=== PATIENT | male | born 1965 | race American Indian/Alaskan Native ===

== ENCOUNTER 2019-07-01 18:45 | Inpatient (IN) | payer MEDICAID ==
[2019-07-01] MEDS ORDERED: ATIVAN IV ONE (19:15)
[2019-07-01] MEDS ORDERED: NACL 0.9% 500 ML 500 ML IV ONE (19:34)
[2019-07-01] MEDS ORDERED: KEPPRA 1,000 MG/NS 0.75% 100ML 1,000 MG/100 ML BAG IV ONE (19:34)
[2019-07-01] MEDS ORDERED: ATIVAN IV PRN (19:35)
--- NOTE | 2019-07-01 19:37 | Emergency Department Report ---
ED General Adult HPI - General Chief complaint: Seizure Stated complaint: SEIZURE/UNRESPONSIVE Time Seen by Provider: 07/01/19 19:26 Source: EMS (verbal report received from EMS.ems notes not available at time of chart dictation), RN notes reviewed, old records reviewed Mode of arrival: Stretcher Limitations: Altered Mental Status, Physical Limitation - History of Present Illness Initial comments: This is a 54-year-old gentleman. The patient is not known to this provider previously. The patient does not have any friends or family members present at the bedside. History entirely obtained from EMS. Apparently, the patient may have had a seizure today. He is reported to be a chronic alcoholic. EMS reports that the patient may have fallen, but they are not sure. The patient reportedly had a seizure in the ER prior to my evaluation, and was given either Ativan or Versed; please see nursing medical records for details of medication administration. In the ER, the patient is found to be delirious, and tachycardic. Patient is afebrile, and his score is initially 21 on ciwa protocol The patient will not answer questions about whether or not he is having physical pain. He is not able to describe exacerbating or relieving factors, or q ualitative nature of his symptoms. He is noted to be moving 4 extremities spontaneously. His last known well time is not explicitly noted at this time. -: unknown Radiation: other Severity scale (0 -10): 0 Quality: other Consistency: other Improves with: other Worsens with: other Associated Symptoms: other - Related Data Allergies Allergy/AdvReac Type Severity Reaction Status Date / Time No Known Allergies Allergy Unverified 10/10/16 22:00 ED Review of Systems ROS: Stated complaint: SEIZURE/UNRESPONSIVE Other details as noted in HPI Comment: Unobtainable due to pts medical conditions ED Past Medical Hx - Past Medical History Previous Medical History?: Yes Hx Arthritis: Yes Additional medical history: etoh abuse - Surgical History Past Surgical History?: Yes Additional Surgical History: left hip dislocation - Social History Smoking Status: Unknown if ever smoked ED Physical Exam - General Limitations: Altered Mental Status, Other General appearance: other (patient postictal, and appears to be delirious) - Head Head exam: Present: atraumatic, normocephalic - Eye Eye exam: Present: normal appearance, EOMI - ENT ENT exam: Present: mucous membranes dry, normal external ear exam - Neck Neck exam: Present: normal inspection, full ROM. Absent: tenderness, meningismus - Respiratory Respiratory exam: Present: normal lung sounds bilaterally. Absent: respiratory distress, wheezes, rales, rhonchi, stridor, decreased breath sounds - Cardiovascular Cardiovascular Exam: Present: normal rhythm, tachycardia, normal heart sounds. Absent: systolic murmur, diastolic murmur, rubs, gallop - GI/Abdominal GI/Abdominal exam: Present: soft. Absent: distended, tenderness, guarding, rebound, rigid, pulsatile mass - Rectal Rectal exam: Present: normal inspection - exam: Present: normal inspection External exam: Present: normal external exam - Extremities Exam Extremities exam: Present: normal inspection, other (2+ pulses noted in the bilateral upper, lower extremities. Compartments soft. No long bony tenderness. The pelvis is stable.). Absent: tenderness, pedal edema, joint swelling, calf tenderness - Back Exam Back exam: Present: normal inspection, full ROM. Absent: tenderness, CVA tenderness (R), CVA tenderness (L), paraspinal tenderness, vertebral tenderness - Neurological Exam Neurological exam: Present: altered, other (there is no facial droop. The patient is moving 4 extremities spontaneously. The patient is delirious. Detailed neurologic examination not possible secondary to altered mental status.) - Psychiatric Psychiatric exam: Present: agitated - Skin Skin exam: Present: warm, dry, intact, normal color. Absent: rash ED Course Vital Signs 07/01/19 07/01/19 07/01/19 19:33 19:35 19:46 Temperature 97.9 F Pulse Rate 112 H 122 H Pulse Rate [ Radial] Respiratory 19 20 14 Rate Blood Pressure Blood Pressure 130/89 [Left] O2 Sat by Pulse 100 98 Oximetry 07/01/19 07/01/19 07/01/19 20:00 20:15 20:30 Temperature Pulse Rate 113 H 111 H 117 H Pulse Rate [ Radial] Respiratory 15 19 15 Rate Blood Pressure 138/96 145/94 145/94 Blood Pressure [Left] O2 Sat by Pulse 99 100 100 Oximetry 07/01/19 07/01/19 07/01/19 21:18 21:30 21:46 Temperature Pulse Rate 96 H 102 H Pulse Rate [ Radial] Respiratory 15 22 Rate Blood Pressure 145/94 118/91 118/91 Blood Pressure [Left] O2 Sat by Pulse 99 99 98 Oximetry 07/01/19 07/01/19 07/01/19 22:00 22:16 22:30 Temperature Pulse Rate 100 H 105 H 102 H Pulse Rate [ Radial] Respiratory 16 18 17 Rate Blood Pressure 127/99 127/99 142/89 Blood Pressure [Left] O2 Sat by Pulse 99 98 98 Oximetry 07/01/19 07/01/19 07/01/19 22:46 23:00 23:06 Temperature Pulse Rate 106 H Pulse Rate [ 110 H Radial] Respiratory 24 Rate Blood Pressure 142/89 142/89 Blood Pressure [Left] O2 Sat by Pulse 99 99 Oximetry 07/01/19 07/01/19 07/01/19 23:16 23:30 23:46 Temperature Pulse Rate Pulse Rate [ Radial] Respiratory Rate Blood Pressure 149/95 149/95 149/95 Blood Pressure [Left] O2 Sat by Pulse 99 100 100 Oximetry 07/02/19 07/02/19 07/02/19 00:00 00:08 00:16 Temperature Pulse Rate 88 100 H 95 H Pulse Rate [ Radial] Respiratory 19 19 18 Rate Blood Pressure 123/82 164/101 164/101 Blood Pressure [Left] O2 Sat by Pulse 100 100 100 Oximetry 07/02/19 00:30 Temperature Pulse Rate 101 H Pulse Rate [ Radial] Respiratory 20 Rate Blood Pressure 139/94 Blood Pressure [Left] O2 Sat by Pulse 98 Oximetry - Reevaluation(s) Reevaluation #1: 07/01/19 20:50 Differential diagnosis, including a not limited to: Intracranial injury, cervical spine injury, breakthrough alcohol withdrawal seizure, dehydration, electrolyte derangement, hypoglycemia Assessment and plan: 54-year-old gentleman with probable alcohol withdrawal seizure. He is afebrile with reassuring vital signs, and is protecting his airway at this time. He is moving 4 extremities spontaneously without difficulty. Screening laboratory studies reviewed and appreciated. Initial anion gap likely secondary to dehydration, and probable recent convulsive event. He will be given IV fluids, Ativan as needed, CT scan of the brain, cervical spine will be obtained, x-ray of the chest will be obtained, urinalysis will be obtained, and patient will be admitted to the medical service for presumed alcohol withdrawal seizure. The patient is not homicidal or suicidal, and he does not meet 1013 criteria at this time. Reevaluation #2: 07/01/19 20:52 Elevated ammonia level also appreciated, rectal lactulose is ordered, there may be a component of hepatic encephalopathy. Reevaluation #3: 07/02/19 00:51 CT scan of the brain and cervical spine negative for acute disease. X-ray of the chest negative for acute disease. Analysis reviewed and appreciated. Question fungal infection, nystatin ordered. Hospital physician, Dr. Flores to admit patient to the medical service. No additional seizures noted so far. 07/02/19 00:52 Repeat laboratory studies show improvement in initial anion gap. ED Medical Decision Making - Lab Data Result diagrams: 07/01/19 19:56 07/01/19 21:15 Vital Signs 07/01/19 07/01/19 07/01/19 19:33 19:35 19:46 Temperature 97.9 F Pulse Rate 112 H 122 H Respiratory 19 20 14 Rate Blood Pressure Blood Pressure 130/89 [Left] O2 Sat by Pulse 100 98 Oximetry 07/01/19 20:00 Temperature Pulse Rate 113 H Respiratory 15 Rate Blood Pressure 138/96 Blood Pressure [Left] O2 Sat by Pulse 99 Oximetry Lab Results 07/01/19 07/01/19 07/01/19 Range/Units 19:56 19:56 19:56 WBC 8.3 (4.5-11.0) K/mm3 RBC 4.56 (3.65-5.03) M/mm3 Hgb 14.5 (11.8-15.2) gm/dl Hct 43.0 (35.5-45.6) % MCV 94 (84-94) fl MCH 32 (28-32) pg MCHC 34 (32-34) % RDW 14.6 (13.2-15.2) % Plt Count 135 L (140-440) K/mm3 Lymph % (Auto) 9.3 L (13.4-35.0) % [place] % (Auto) 8.3 H (0.0-7.3) % Eos % (Auto) 0.0 (0.0-4.3) % Baso % (Auto) 0.4 (0.0-1.8) % Lymph # 0.8 L (1.2-5.4) K/mm3 [place] # 0.7 (0.0-0.8) K/mm3 Eos # 0.0 (0.0-0.4) K/mm3 Baso # 0.0 (0.0-0.1) K/mm3 Seg Neutrophils % 82.0 H (40.0-70.0) % Seg Neutrophils # 6.8 (1.8-7.7) K/mm3 Sodium 144 (137-145) mmol/L Potassium 4.0 (3.6-5.0) mmol/L Chloride 101.3 (98-107) mmol/L Carbon Dioxide 16 L (22-30) mmol/L Anion Gap 31 mmol/L BUN 8 L (9-20) mg/dL Creatinine 0.8 (0.8-1.5) mg/dL Estimated GFR > 60 ml/min BUN/Creatinine Ratio 10 % Glucose 163 H (75-100) mg/dL Calcium 9.5 (8.4-10.2) mg/dL Magnesium 1.90 (1.7-2.3) mg/dL Total Bilirubin 0.70 (0.1-1.2) mg/dL AST 54 H (5-40) units/L ALT 26 (7-56) units/L Alkaline Phosphatase 117 (35-129) units/L Ammonia 68.0 H (25-60) umol/L Total Creatine Kinase 536 H (55-170) units/L Total Protein 8.7 H (6.3-8.2) g/dL Albumin 4.4 (3.9-5) g/dL Albumin/Globulin Ratio 1.0 % Salicylates (2.8-20.0) mg/dL Acetaminophen (10.0-30.0) ug/mL Plasma/Serum Alcohol (0-0.07) % 07/01/19 07/01/19 07/01/19 Range/Units 19:56 19:56 19:56 WBC (4.5-11.0) K/mm3 RBC (3.65-5.03) M/mm3 Hgb (11.8-15.2) gm/dl Hct (35.5-45.6) % MCV (84-94) fl MCH (28-32) pg MCHC (32-34) % RDW (13.2-15.2) % Plt Count (140-440) K/mm3 Lymph % (Auto) (13.4-35.0) % [place] % (Auto) (0.0-7.3) % Eos % (Auto) (0.0-4.3) % Baso % (Auto) (0.0-1.8) % Lymph # (1.2-5.4) K/mm3 [place] # (0.0-0.8) K/mm3 Eos # (0.0-0.4) K/mm3 Baso # (0.0-0.1) K/mm3 Seg Neutrophils % (40.0-70.0) % Seg Neutrophils # (1.8-7.7) K/mm3 Sodium (137-145) mmol/L Potassium (3.6-5.0) mmol/L Chloride (98-107) mmol/L Carbon Dioxide (22-30) mmol/L Anion Gap mmol/L BUN (9-20) mg/dL Creatinine (0.8-1.5) mg/dL Estimated GFR ml/min BUN/Creatinine Ratio % Glucose (75-100) mg/dL Calcium (8.4-10.2) mg/dL Magnesium (1.7-2.3) mg/dL Total Bilirubin (0.1-1.2) mg/dL AST (5-40) units/L ALT (7-56) units/L Alkaline Phosphatase (35-129) units/L Ammonia (25-60) umol/L Total Creatine Kinase (55-170) units/L Total Protein (6.3-8.2) g/dL Albumin (3.9-5) g/dL Albumin/Globulin Ratio % Salicylates < 0.3 L (2.8-20.0) mg/dL Acetaminophen < 5.0 L (10.0-30.0) ug/mL Plasma/Serum Alcohol < 0.01 (0-0.07) % - EKG Data -: EKG Interpreted by Id Rate: tachycardia - EKG Data 07/01/19 20:52 This EKG is limited by motion artifact. EKG is a sinus tachycardia, QTC prolonged, left ventricular hypertrophy, atrial enlargement, poor R-wave progression, there is no prior for comparison, the EKG is not consistent with ST elevation myocardial infarction. - Radiology Data Radiology results: pending Critical Care Time: Yes Critical care time in (mins) excluding proc time.: 35 Critical care attestation.: If time is entered above; I have spent that time in minutes in the direct care of this critically ill patient, excluding procedure time. ED Disposition Clinical Impression: Alcohol withdrawal seizure Qualifiers: Complication of substance-induced condition: with unspecified complication Qualified Code(s): F10.239 - Alcohol dependence with withdrawal, unspecified Disposition: OP ADMIT IP TO THIS HOSP Is pt being admited?: Yes Condition: Fair Referrals: LESLY ASIF MD [Primary Care Provider] - 3-5 Days
[2019-07-01] MEDS: ATIVAN IV PRN (19:55)
[2019-07-01] MEDS ORDERED: D5/0.45NS 1,000 ML IV SCH ×2 (20:00)
[2019-07-01 20:10] LABS: Basophils % (Auto) 0.4 % (0.0-1.8); Hemoglobin 14.5 gm/dl (11.8-15.2); Lymphocytes # (Auto) 0.8 K/mm3 (1.2-5.4); Lymphocytes % (Auto) 9.3 % (13.4-35.0); Mean Corpuscular HGB Conc 34 % (32-34); Mean Corpuscular Volume 94 fl (84-94); Monocytes # (Auto) 0.7 K/mm3 (0.0-0.8); Monocytes % (Auto) 8.3 % (0.0-7.3); Platelet Count 135 K/mm3 (140-440); Red Blood Count 4.56 M/mm3 (3.65-5.03); Red Cell Distribution Width 14.6 % (13.2-15.2)
[2019-07-01 20:25] LABS: Alanine Aminotransferase 26 units/L (7-56); Albumin 4.4 g/dL (3.9-5); BUN/Creatinine Ratio 10; Blood Urea Nitrogen 8 mg/dL (9-20); Calcium 9.5 mg/dL (8.4-10.2); Hemolysis Index 8
[2019-07-01] MEDS ORDERED: CEPHULAC PR STA (20:46)
[2019-07-01 21:44] LABS: BUN/Creatinine Ratio 13; Blood Urea Nitrogen 8 mg/dL (9-20); Calcium 8.8 mg/dL (8.4-10.2); Hemolysis Index 29
--- NOTE | 2019-07-01 21:53 | Cat Scan Report ---
CT CERVICAL SPINE: 07/01/2019 INDICATION / CLINICAL INFORMATION: Seizure. Trauma COMPARISON: None available. FINDINGS: CT images of the cervical spine were obtained. Images are evaluated in the axial, coronal, and sagit wyatt planes. There is significant patient motion artifact present on these images. There is no definite evidence of acute injury. Subtle abnormalities could be obscured with this degre e of patient motion artifact. Degenerative disc and facet changes are present throughout the cervical spine. CRANIOCERVICAL JUNCTION: Unremarkable. IMPRESSION: Limited exam due to patient motion artifact. Degenerative change. No evidence of acute abnormality. All CT scans at this location are performed using dose reduction to ALARA by means of automated expos ure control. Signer Name: Shahriar Wilson MD Signed: 07/01/2019 9:49 PM Workstation Name: [id number]
[2019-07-01 22:30] LABS: Amphetamine Screen,Urine PRESUMPTIVE NEGATIVE; Benzodiazepines Screen,Urine PRESUMPTIVE NEGATIVE; Cocaine Screen,Urine PRESUMPTIVE NEGATIVE; Methadone Screen,Urine PRESUMPTIVE NEGATIVE; Opiate Screen,Urine PRESUMPTIVE NEGATIVE
--- NOTE | 2019-07-01 22:36 | Cat Scan Report ---
CT head/brain wo con INDICATION: Seizure. TECHNIQUE: All CT scans at this location are performed using CT dose reduction for ALARA by means of automated e xposure control. COMPARISON: None available. FINDINGS: Visualized paranasal and mastoid sinuses are clear. Ventricles are symmetrical and normal in size. De tail is obscured by patient motion, but I see no mass, hemorrhage or other acute abnormality. IMPRESSION: 1. Negative study Signer Name: Lacho Gonzalez MD Signed: 07/01/2019 10:32 PM Workstation Name: [id number]
[2019-07-01 22:44] LABS: Cannabinoid Screen,Urine PRESUMPTIVE POSITIVE
[2019-07-01 22:47] LABS: Bilirubin,Urine NEG (Negative); Blood,Urine MOD (Negative); Color,Urine Yellow (Yellow); Mucus,Urine FEW /HPF; Urobilinogen,Urine < 2.0 mg/dL (<2.0)
--- NOTE | 2019-07-01 23:44 | XRay Report ---
CHEST 1 VIEW INDICATION / CLINICAL INFORMATION: sz ams etoh dependence. COMPARISON: 10/10/2016 FINDINGS: SUPPORT DEVICES: None. HEART / MEDIASTINUM: No significant abnormality. LUNGS / PLEURA: No significant pulmonary or pleural abnormality. No pneumothorax. ADDITIONAL FINDINGS: No significant additional findings. IMPRESSION: 1. No acute findings. Signer Name: Rory Kearney MD Signed: 07/01/2019 11:39 PM Workstation Name: [id number]
[2019-07-02] MEDS ORDERED: SODIUM CHLORIDE FLUSH SYRINGE 10 ML IV PRN (00:47)
[2019-07-02] MEDS ORDERED: ZOFRAN IV PRN (00:47)
[2019-07-02] MEDS ORDERED: TYLENOL PO PRN (00:47)
[2019-07-02] MEDS ORDERED: TYLENOL PR PRN (00:47)
--- NOTE | 2019-07-02 00:49 | History and Physical Report ---
History of Present Illness Date of examination: 07/01/19 History of present illness: 54-year-old man with a history of alcohol abuse was found to have a seizure and was brought to the emergency room for evaluation. He was found to be in alcohol withdrawal, started on CIWA protocol, also given a dose of lactulose for el evated ammonia. Patient is unable to give a history. s/p IV Keppra in the ER PAST MEDICAL HISTORY:alcohol abuse PAST SURGICAL HISTORY: Unknown FAMILY HISTORY:Unknown SOCIAL HISTORY: Unknown Medications and Allergies Allergies Allergy/AdvReac Type Severity Reaction Status Date / Time No Known Allergies Allergy Unverified 10/10/16 22:00 Active Meds: Active Medications Acetaminophen (Tylenol) 650 mg PO Q4H PRN PRN Reason: Pain MILD(1-3)/Fever >100.5/LOUISE Acetaminophen (Tylenol) 650 mg [place] Q4H PRN PRN Reason: Pain MILD(1-3)/Fever >100.5/LOUISE Enoxaparin Sodium (Lovenox) 30 mg SUB-Q QDAY BEE Dextrose/Sodium Chloride (D5/0.45ns) 1,000 mls @ 0 mls/hr IV DIRECT BEE Last Admin: 07/01/19 22:27 Dose: 999 mls/hr Documented by: Dextrose/Sodium Chloride (D5/0.45ns) 1,000 mls @ 0 mls/hr IV DIRECT BEE Last Admin: 07/01/19 22:28 Dose: 999 mls/hr Documented by: Lorazepam (Ativan) 2 mg IV Q1HR PRN PRN Reason: CIWA-Ar 8-15 Lorazepam (Ativan) 4 mg IV Q1HR PRN PRN Reason: CIWA-Ar 16-25 Last Admin: 07/01/19 19:55 Dose: 4 mg Documented by: Lorazepam (Ativan) 4 mg IV Q15MIN PRN PRN Reason: CIWA-Ar >25 Ondansetron HCl (Zofran) 4 mg IV Q4H PRN PRN Reason: Nausea And Vomiting Sodium Chloride (Sodium Chloride Flush Syringe 10 Ml) 10 ml IV BID BEE Sodium Chloride (Sodium Chloride Flush Syringe 10 Ml) 10 ml IV PRN PRN PRN Reason: LINE FLUSH Exam - Physical Exam Narrative exam: General Apperance: The patient sitting in bed no acute distress HEENT: Normocephalic, atraumatic. Pupils equally round and reactive to light, extraocular movement intact, and no sclericterus or JVD or thyromegaly or nodule. Neck supple, no carotid bruit, mucous membranes moist, no exudate or erythema Heart: S1-S2, regular is rhythm Lungs: Clear to auscultation bilaterally, breathing comfortable Abdomen: Positive bowel sounds, soft, nontender, nondistended, no organomegaly Extremities: No edema cyanosis clubbing Skin: no rash, nodule, warm and dry Neuro:sedated - Constitutional Vitals: Temp Pulse Resp BP Pulse Ox 97.9 F 101 H 20 139/94 98 07/01/19 19:33 07/02/19 00:30 07/02/19 00:30 07/02/19 00:30 07/02/19 00:30 Results - Labs CBC & Chem 7: 07/01/19 19:56 07/01/19 21:15 Labs: Abnormal lab results 07/01/19 07/01/19 07/01/19 Range/Units 19:56 19:56 19:56 Plt Count 135 L (140-440) K/mm3 Lymph % (Auto) 9.3 L (13.4-35.0) % [place] % (Auto) 8.3 H (0.0-7.3) % Lymph # 0.8 L (1.2-5.4) K/mm3 Seg Neutrophils % 82.0 H (40.0-70.0) % Carbon Dioxide 16 L (22-30) mmol/L BUN 8 L (9-20) mg/dL Creatinine (0.8-1.5) mg/dL Glucose 163 H (75-100) mg/dL POC Glucose (70-105) AST 54 H (5-40) units/L Ammonia 68.0 H (25-60) umol/L Total Creatine Kinase 536 H (55-170) units/L Total Protein 8.7 H (6.3-8.2) g/dL Urine WBC (Auto) (0.0-6.0) /HPF Salicylates (2.8-20.0) mg/dL Acetaminophen (10.0-30.0) ug/mL 07/01/19 07/01/19 07/01/19 Range/Units 19:56 19:56 21:15 Plt Count (140-440) K/mm3 Lymph % (Auto) (13.4-35.0) % [place] % (Auto) (0.0-7.3) % Lymph # (1.2-5.4) K/mm3 Seg Neutrophils % (40.0-70.0) % Carbon Dioxide 21 L (22-30) mmol/L BUN 8 L (9-20) mg/dL Creatinine 0.6 L (0.8-1.5) mg/dL Glucose 129 H (75-100) mg/dL POC Glucose (70-105) AST (5-40) units/L Ammonia (25-60) umol/L Total Creatine Kinase (55-170) units/L Total Protein (6.3-8.2) g/dL Urine WBC (Auto) (0.0-6.0) /HPF Salicylates < 0.3 L (2.8-20.0) mg/dL Acetaminophen < 5.0 L (10.0-30.0) ug/mL 07/01/19 07/01/19 Range/Units 21:27 21:40 Plt Count (140-440) K/mm3 Lymph % (Auto) (13.4-35.0) % [place] % (Auto) (0.0-7.3) % Lymph # (1.2-5.4) K/mm3 Seg Neutrophils % (40.0-70.0) % Carbon Dioxide (22-30) mmol/L BUN (9-20) mg/dL Creatinine (0.8-1.5) mg/dL Glucose (75-100) mg/dL POC Glucose 133 H (70-105) AST (5-40) units/L Ammonia (25-60) umol/L Total Creatine Kinase (55-170) units/L Total Protein (6.3-8.2) g/dL Urine WBC (Auto) 15.0 H (0.0-6.0) /HPF Salicylates (2.8-20.0) mg/dL Acetaminophen (10.0-30.0) ug/mL - Imaging and Cardiology EKG: image reviewed CT Scan - head: report reviewed Assessment and Plan CT C-spine to reviewed Assessment Alcohol Withdrawal Elevated ammonia level Thrombocytopenia Plan Start IV fluid, CIWA protocol with IV ativan Start lactulose, monitor ammonia level DVT prophylaxis
[2019-07-02] MEDS ORDERED: NYSTATIN PO ONE (00:51)
[2019-07-02] MEDS ORDERED: ATIVAN ONE (01:46)
[2019-07-02] MEDS: ATIVAN IV PRN ×2 (01:51→03:58)
[2019-07-02] MEDS: CEPHULAC PR SCH ×4 (06:28→22:55)
[2019-07-02 07:47] LABS: Basophils % (Auto) 0.5 % (0.0-1.8); Eosinophils % (Auto) 0.1 % (0.0-4.3); Hematocrit 40.9 % (35.5-45.6); Hemoglobin 13.8 gm/dl (11.8-15.2); Lymphocytes # (Auto) 1.7 K/mm3 (1.2-5.4); Lymphocytes % (Auto) 23.4 % (13.4-35.0); Mean Corpuscular HGB Conc 34 % (32-34); Mean Corpuscular Volume 95 fl (84-94); Platelet Count 107 K/mm3 (140-440); Red Blood Count 4.31 M/mm3 (3.65-5.03); Red Cell Distribution Width 14.4 % (13.2-15.2)
[2019-07-02 08:09] LABS: BUN/Creatinine Ratio 10; Blood Urea Nitrogen 5 mg/dL (9-20); Calcium 9.1 mg/dL (8.4-10.2); Hemolysis Index 16
[2019-07-02] MEDS ORDERED: LOVENOX SUB-Q SCH ×2 (10:00)
[2019-07-02] MEDS: SODIUM CHLORIDE FLUSH SYRINGE 10 ML IV SCH ×2 (10:30→22:55)
[2019-07-03] MEDS: ATIVAN IV PRN (00:58)
[2019-07-03] MEDS: CEPHULAC PR SCH ×4 (05:44→23:56)
[2019-07-03 13:35] LABS: Blood Urea Nitrogen 6 mg/dL (9-20)
[2019-07-03 13:36] LABS: BUN/Creatinine Ratio 10; Calcium 9.4 mg/dL (8.4-10.2); Hemolysis Index 0
--- NOTE | 2019-07-03 15:28 | Progress Note ---
Assessment and Plan Assessment and plan: 54-year-old man with a history of alcohol abuse was found to have a seizure and was brought to the emergency room for evaluation. He was found to be in alcohol withdrawal, started on CIWA protocol, also given a dose of lactulose for elevated ammonia. Patient is unable to give a history. PAST MEDICAL HISTORY:alcohol abuse Hepatic encephalopathy sp lactulose, fup repeat NH3 levels DTs/etoh withdrawal ciwa protocol, thiamine and folate, preventative health counseling for 17 minutes Status epilepticus sp keandrwera, likely due to withdrawal -improved dysphagia -SS consult dvt ppx- lovenox Hospitalist Physical - Constitutional Vitals: Temp Pulse Resp BP Pulse Ox 97.7 F 124 H 18 123/97 97 07/03/19 08:01 07/03/19 10:00 07/03/19 10:00 07/03/19 08:01 07/03/19 10:00 Results - Labs CBC & Chem 7: 07/02/19 06:36 07/03/19 12:31 Labs: Laboratory Last Values WBC 7.4 K/mm3 (4.5-11.0) 07/02/19 06:36 RBC 4.31 M/mm3 (3.65-5.03) 07/02/19 06:36 Hgb 13.8 gm/dl (11.8-15.2) 07/02/19 06:36 Hct 40.9 % (35.5-45.6) 07/02/19 06:36 MCV 95 fl (84-94) H 07/02/19 06:36 MCH 32 pg (28-32) 07/02/19 06:36 MCHC 34 % (32-34) 07/02/19 06:36 RDW 14.4 % (13.2-15.2) 07/02/19 06:36 Plt Count 107 K/mm3 (140-440) L 07/02/19 06:36 Lymph % (Auto) 23.4 % (13.4-35.0) 07/02/19 06:36 [place] % (Auto) 13.0 % (0.0-7.3) H 07/02/19 06:36 Eos % (Auto) 0.1 % (0.0-4.3) 07/02/19 06:36 Baso % (Auto) 0.5 % (0.0-1.8) 07/02/19 06:36 Lymph # 1.7 K/mm3 (1.2-5.4) 07/02/19 06:36 [place] # 1.0 K/mm3 (0.0-0.8) H 07/02/19 06:36 Eos # 0.0 K/mm3 (0.0-0.4) 07/02/19 06:36 Baso # 0.0 K/mm3 (0.0-0.1) 07/02/19 06:36 Seg Neutrophils % 63.0 % (40.0-70.0) 07/02/19 06:36 Seg Neutrophils # 4.7 K/mm3 (1.8-7.7) 07/02/19 06:36 Sodium 141 mmol/L (137-145) 07/03/19 12:31 Potassium 3.3 mmol/L (3.6-5.0) L 07/03/19 12:31 Chloride 98.6 mmol/L (98-107) 07/03/19 12:31 Carbon Dioxide 26 mmol/L (22-30) 07/03/19 12:31 20 mmol/L 07/03/19 12:31 BUN 6 mg/dL (9-20) L 07/03/19 12:31 0.6 mg/dL (0.8-1.5) L 07/03/19 12:31 Estimated GFR > 60 ml/min 07/03/19 12:31 10 % 07/03/19 12:31 Glucose 99 mg/dL (75-100) 07/03/19 12:31 POC Glucose 87 (70-105) 07/03/19 12:13 Calcium 9.4 mg/dL (8.4-10.2) 07/03/19 12:31 Magnesium 1.90 mg/dL (1.7-2.3) 07/01/19 19:56 0.70 mg/dL (0.1-1.2) 07/01/19 19:56 AST 54 units/L (5-40) H 07/01/19 19:56 ALT 26 units/L (7-56) 07/01/19 19:56 117 units/L (35-129) 07/01/19 19:56 26.0 umol/L (25-60) 07/03/19 12:31 536 units/L (55-170) H 07/01/19 19:56 8.7 g/dL (6.3-8.2) H 07/01/19 19:56 4.4 g/dL (3.9-5) 07/01/19 19:56 1.0 % 07/01/19 19:56 Yellow (Yellow) 07/01/19 21:40 Cloudy (Clear) 07/01/19 21:40 5.0 (5.0-7.0) 07/01/19 21:40 Ur Specific [place] 1.023 (1.003-1.030) 07/01/19 21:40 100 mg/dl mg/dL (Negative) 07/01/19 21:40 Neg mg/dL (Negative) 07/01/19 21:40 20 mg/dL (Negative) 07/01/19 21:40 Mod (Negative) 07/01/19 21:40 Neg (Negative) 07/01/19 21:40 Neg (Negative) 07/01/19 21:40 < 2.0 mg/dL (<2.0) 07/01/19 21:40 Ur Leukocyte Esterase Neg (Negative) 07/01/19 21:40 15.0 /HPF (0.0-6.0) H 07/01/19 21:40 14.0 /HPF (0.0-6.0) 07/01/19 21:40 Few /HPF 07/01/19 21:40 2+ /HPF 07/01/19 21:40 Salicylates < 0.3 mg/dL (2.8-20.0) L 07/01/19 19:56 Presumptive negative 07/01/19 21:40 Presumptive negative 07/01/19 21:40 Acetaminophen < 5.0 ug/mL (10.0-30.0) L 07/01/19 19:56 Ur Barbiturates Screen Presumptive negative 07/01/19 21:40 Ur Phencyclidine Scrn Presumptive negative 07/01/19 21:40 Ur Amphetamines Screen Presumptive negative 07/01/19 21:40 U Benzodiazepines Scrn Presumptive negative 07/01/19 21:40 Presumptive negative 07/01/19 21:40 U Marijuana (THC) Screen Presumptive positive 07/01/19 21:40 Disclamer 07/01/19 21:40 Plasma/Serum Alcohol < 0.01 % (0-0.07) 07/01/19 19:56 Active Medications - Current Medications Current Medications: Generic Name Dose Route Start Last Admin Trade Name Freq PRN Reason Stop Dose Admin Acetaminophen 650 mg 07/02/19 00:47 Tylenol PO Q4H PRN Pain MILD(1-3)/Fever >100.5/LOUISE Acetaminophen 650 mg 07/02/19 00:47 Tylenol OR Q4H PRN Pain MILD(1-3)/Fever >100.5/LOUISE Lactulose 200 gm 07/02/19 05:00 07/03/19 05:44 Cephulac OR 200 gm Q6H BEE Administration Lorazepam 2 mg 07/01/19 19:35 07/03/19 00:58 Ativan IV 2 mg Q1HR PRN Administration CIWA-Ar 8-15 Lorazepam 4 mg 07/01/19 19:35 07/01/19 19:55 Ativan IV 4 mg Q1HR PRN Administration CIWA-Ar 16-25 Lorazepam 4 mg 07/01/19 19:35 Ativan IV Q15MIN PRN CIWA-Ar >25 Ondansetron HCl 4 mg 07/02/19 00:47 Zofran IV Q4H PRN Nausea And Vomiting Sodium Chloride 10 ml 07/02/19 10:00 07/02/19 22:55 Sodium Chloride Flush Syringe 10 Ml IV 10 ml BID BEE Administration Sodium Chloride 10 ml 07/02/19 00:47 Sodium Chloride Flush Syringe 10 Ml IV PRN PRN LINE FLUSH
[2019-07-03] MEDS ORDERED: KCL 40 MEQ in NACL 0.45% 500 ML IV SCH (17:00)
[2019-07-03] MEDS: SODIUM CHLORIDE FLUSH SYRINGE 10 ML IV SCH ×2 (18:09→22:52)
[2019-07-03] MEDS: D5NS 0.2% 1,000 ML IV SCH (23:55)
[2019-07-04] MEDS: ATIVAN IV PRN ×2 (01:33→20:06)
[2019-07-04 04:16] LABS: BUN/Creatinine Ratio 20; Blood Urea Nitrogen 10 mg/dL (9-20); Hemolysis Index 7
[2019-07-04] MEDS: CEPHULAC PR SCH (04:50)
[2019-07-04] MEDS: FOLVITE PO SCH (10:07)
[2019-07-04] MEDS: SODIUM CHLORIDE FLUSH SYRINGE 10 ML IV SCH ×2 (10:07→21:56)
[2019-07-04] MEDS: VITAMIN B-1 PO SCH (10:07)
[2019-07-04] MEDS: CEPHULAC PO SCH (18:29)
[2019-07-04] MEDS: D5NS 0.2% 1,000 ML IV SCH (21:56)
--- NOTE | 2019-07-04 22:44 | Progress Note ---
Assessment and Plan Assessment and plan: 54-year-old man with a history of alcohol abuse was found to have a seizure and was brought to the emergency room for evaluation. He was found to be in alcohol withdrawal, started on CIWA protocol, also given a dose of lactulose for elevated ammonia. Patient is unable to give a history. PAST MEDICAL HISTORY:alcohol abuse Hepatic encephalopathy sp lactulose, fup repeat NH3 levels DTs/etoh withdrawal ciwa protocol, thiamine and folate, preventative health counseling for 17 minutes Status epilepticus sp keandrewra, likely due to withdrawal -improved dysphagia -SS consult dvt ppx- lovenox Hospitalist Physical - Constitutional Vitals: Temp Pulse Resp BP Pulse Ox 98.2 F 120 H 20 149/90 100 07/04/19 20:00 07/04/19 21:03 07/04/19 21:03 07/04/19 20:00 07/04/19 21:03 Results - Labs CBC & Chem 7: 07/02/19 06:36 07/04/19 03:34 Labs: Laboratory Last Values WBC 7.4 K/mm3 (4.5-11.0) 07/02/19 06:36 RBC 4.31 M/mm3 (3.65-5.03) 07/02/19 06:36 Hgb 13.8 gm/dl (11.8-15.2) 07/02/19 06:36 Hct 40.9 % (35.5-45.6) 07/02/19 06:36 MCV 95 fl (84-94) H 07/02/19 06:36 MCH 32 pg (28-32) 07/02/19 06:36 MCHC 34 % (32-34) 07/02/19 06:36 RDW 14.4 % (13.2-15.2) 07/02/19 06:36 Plt Count 107 K/mm3 (140-440) L 07/02/19 06:36 Lymph % (Auto) 23.4 % (13.4-35.0) 07/02/19 06:36 [place] % (Auto) 13.0 % (0.0-7.3) H 07/02/19 06:36 Eos % (Auto) 0.1 % (0.0-4.3) 07/02/19 06:36 Baso % (Auto) 0.5 % (0.0-1.8) 07/02/19 06:36 Lymph # 1.7 K/mm3 (1.2-5.4) 07/02/19 06:36 [place] # 1.0 K/mm3 (0.0-0.8) H 07/02/19 06:36 Eos # 0.0 K/mm3 (0.0-0.4) 07/02/19 06:36 Baso # 0.0 K/mm3 (0.0-0.1) 07/02/19 06:36 Seg Neutrophils % 63.0 % (40.0-70.0) 07/02/19 06:36 Seg Neutrophils # 4.7 K/mm3 (1.8-7.7) 07/02/19 06:36 Sodium 139 mmol/L (137-145) 07/04/19 03:34 Potassium 3.5 mmol/L (3.6-5.0) L 07/04/19 03:34 Chloride 100.1 mmol/L (98-107) 07/04/19 03:34 Carbon Dioxide 27 mmol/L (22-30) 07/04/19 03:34 15 mmol/L 07/04/19 03:34 BUN 10 mg/dL (9-20) 07/04/19 03:34 0.5 mg/dL (0.8-1.5) L 07/04/19 03:34 Estimated GFR > 60 ml/min 07/04/19 03:34 20 % 07/04/19 03:34 Glucose 116 mg/dL (75-100) H 07/04/19 03:34 POC Glucose 119 (70-105) H 07/04/19 12:54 Calcium 9.0 mg/dL (8.4-10.2) 07/04/19 03:34 Magnesium 1.90 mg/dL (1.7-2.3) 07/01/19 19:56 0.70 mg/dL (0.1-1.2) 07/01/19 19:56 AST 54 units/L (5-40) H 07/01/19 19:56 ALT 26 units/L (7-56) 07/01/19 19:56 117 units/L (35-129) 07/01/19 19:56 64.0 umol/L (25-60) H 07/04/19 03:34 536 units/L (55-170) H 07/01/19 19:56 8.7 g/dL (6.3-8.2) H 07/01/19 19:56 4.4 g/dL (3.9-5) 07/01/19 19:56 1.0 % 07/01/19 19:56 Yellow (Yellow) 07/01/19 21:40 Cloudy (Clear) 07/01/19 21:40 5.0 (5.0-7.0) 07/01/19 21:40 Ur Specific [place] 1.023 (1.003-1.030) 07/01/19 21:40 100 mg/dl mg/dL (Negative) 07/01/19 21:40 Neg mg/dL (Negative) 07/01/19 21:40 20 mg/dL (Negative) 07/01/19 21:40 Mod (Negative) 07/01/19 21:40 Neg (Negative) 07/01/19 21:40 Neg (Negative) 07/01/19 21:40 < 2.0 mg/dL (<2.0) 07/01/19 21:40 Ur Leukocyte Esterase Neg (Negative) 07/01/19 21:40 15.0 /HPF (0.0-6.0) H 07/01/19 21:40 14.0 /HPF (0.0-6.0) 07/01/19 21:40 Few /HPF 07/01/19 21:40 2+ /HPF 07/01/19 21:40 Salicylates < 0.3 mg/dL (2.8-20.0) L 07/01/19 19:56 Presumptive negative 07/01/19 21:40 Presumptive negative 07/01/19 21:40 Acetaminophen < 5.0 ug/mL (10.0-30.0) L 07/01/19 19:56 Ur Barbiturates Screen Presumptive negative 07/01/19 21:40 Ur Phencyclidine Scrn Presumptive negative 07/01/19 21:40 Ur Amphetamines Screen Presumptive negative 07/01/19 21:40 U Benzodiazepines Scrn Presumptive negative 07/01/19 21:40 Presumptive negative 07/01/19 21:40 U Marijuana (THC) Screen Presumptive positive 07/01/19 21:40 Disclamer 07/01/19 21:40 Plasma/Serum Alcohol < 0.01 % (0-0.07) 07/01/19 19:56 Active Medications - Current Medications Current Medications: Generic Name Dose Route Start Last Admin Trade Name Freq PRN Reason Stop Dose Admin Acetaminophen 650 mg 07/02/19 00:47 Tylenol PO Q4H PRN Pain MILD(1-3)/Fever >100.5/LOUISE Acetaminophen 650 mg 07/02/19 00:47 Tylenol [place] Q4H PRN Pain MILD(1-3)/Fever >100.5/LOUISE Folic Acid 1 mg 07/04/19 10:00 07/04/19 10:07 Folvite PO 1 mg QDAY BEE Administration Dextrose/Sodium Chloride 1,000 mls @ 100 mls/hr 07/03/19 17:00 07/04/19 21:56 D5ns 0.2% IV 100 mls/hr DIRECT BEE Administration Lactulose 10 gm 07/04/19 13:00 07/04/19 18:29 Cephulac PO 10 gm QDAY BEE Administration Lorazepam 2 mg 07/01/19 19:35 07/04/19 01:33 Ativan IV 2 mg Q1HR PRN Administration CIWA-Ar 8-15 Lorazepam 4 mg 07/01/19 19:35 07/04/19 20:06 Ativan IV 4 mg Q1HR PRN Administration CIWA-Ar 16-25 Lorazepam 4 mg 07/01/19 19:35 Ativan IV Q15MIN PRN CIWA-Ar >25 Ondansetron HCl 4 mg 07/02/19 00:47 Zofran IV Q4H PRN Nausea And Vomiting Sodium Chloride 10 ml 07/02/19 10:00 07/04/19 21:56 Sodium Chloride Flush Syringe 10 Ml IV 10 ml BID BEE Administration Sodium Chloride 10 ml 07/02/19 00:47 Sodium Chloride Flush Syringe 10 Ml IV PRN PRN LINE FLUSH Thiamine HCl 100 mg 07/04/19 10:00 07/04/19 10:07 Vitamin B-1 PO 100 mg QDAY BEE Administration Nutrition/Malnutrition Assess - Dietary Evaluation Nutrition/Malnutrition Findings: Nutrition Notes Start: 07/03/19 17:17 Freq: Status: Active Protocol: Document 07/03/19 17:17 RM (Rec: 07/03/19 17:20 RM [id number]) Nutrition Notes Need for Assessment generated from: MD Order Initial or Follow up Brief Note Other Pertinent Diagnosis Hx alcohol abuse, Alcohol withdrawal, Elevated ammonia Current Diet Pureed Labs/Tests Reviewed Pertinent Medications Lactulose Height 5 ft 11 in Weight 67.7 kg [place] Body Weight (kg) 78.18 BMI 20.8 Subjective/Other Information Consulted for ONS diet. Pt confused at time of visit. Per nurse pt ate all of his meals today. Noted temporal wasting. Burn Absent Trauma Absent Nutrition Intervention Follow-Up By: 07/05/19 Additional Comments Follow for PO intakes, malnurition assessment
[2019-07-05] MEDS: FOLVITE PO SCH (10:37)
[2019-07-05] MEDS: VITAMIN B-1 PO SCH (10:37)
[2019-07-05] MEDS: CEPHULAC PO SCH (10:37)
[2019-07-05] MEDS: SODIUM CHLORIDE FLUSH SYRINGE 10 ML IV SCH ×2 (10:37→21:59)
--- NOTE | 2019-07-05 12:03 | Progress Note ---
Assessment and Plan Assessment and plan: 54-year-old man with a history of alcohol abuse was found to have a seizure and was brought to the emergency room for evaluation. He was found to be in alcohol withdrawal, started on CIWA protocol, also given a dose of lactulose for elevated ammonia. Patient is unable to give a history. PAST MEDICAL HISTORY:alcohol abuse Hepatic encephalopathy sp lactulose, fup repeat NH3 levels DTs/etoh withdrawal ciwa protocol, thiamine and folate, preventative health counseling for 17 minutes Status epilepticus sp keppra, likely due to withdrawal -improved dysphagia -SS consult dvt ppx- lovenox History Interval history: Review of systems Constitutional: No fevers, no malaise, no joint pains CVS: No chest pain, no orthopnea, no dyspnea on exertion, no pedal edema GI: No abdominal pain, no diarrhea, no vomiting, no constipation Respiratory: no wheezing, no coughing Hospitalist Physical - Physical exam Narrative exam: General.: Appears well, no distress, nontoxic HEENT: Moist mucous membranes, extraocular muscles intact, no lymphadenopathy Neck: supple Cardiac: S1-S2 heard Lungs: clear to auscultation bilaterally Abdomen: soft , nontender, nondistended, bowel sounds positive Extremities: no edema clubbing or cyanosis Skin: no rash or lesions Neurologic: no gross focal deficits Psych: calm, and cooperative - Constitutional Vitals: Temp Pulse Resp BP Pulse Ox 98.1 F 97 H 18 132/93 100 07/05/19 08:12 07/05/19 08:42 07/05/19 08:12 07/05/19 08:12 07/05/19 09:39 Results - Labs CBC & Chem 7: 07/02/19 06:36 07/04/19 03:34 Labs: Laboratory Last Values WBC 7.4 K/mm3 (4.5-11.0) 07/02/19 06:36 RBC 4.31 M/mm3 (3.65-5.03) 07/02/19 06:36 Hgb 13.8 gm/dl (11.8-15.2) 07/02/19 06:36 Hct 40.9 % (35.5-45.6) 07/02/19 06:36 MCV 95 fl (84-94) H 07/02/19 06:36 MCH 32 pg (28-32) 07/02/19 06:36 MCHC 34 % (32-34) 07/02/19 06:36 RDW 14.4 % (13.2-15.2) 07/02/19 06:36 Plt Count 107 K/mm3 (140-440) L 07/02/19 06:36 Lymph % (Auto) 23.4 % (13.4-35.0) 07/02/19 06:36 [place] % (Auto) 13.0 % (0.0-7.3) H 07/02/19 06:36 Eos % (Auto) 0.1 % (0.0-4.3) 07/02/19 06:36 Baso % (Auto) 0.5 % (0.0-1.8) 07/02/19 06:36 Lymph # 1.7 K/mm3 (1.2-5.4) 07/02/19 06:36 [place] # 1.0 K/mm3 (0.0-0.8) H 07/02/19 06:36 Eos # 0.0 K/mm3 (0.0-0.4) 07/02/19 06:36 Baso # 0.0 K/mm3 (0.0-0.1) 07/02/19 06:36 Seg Neutrophils % 63.0 % (40.0-70.0) 07/02/19 06:36 Seg Neutrophils # 4.7 K/mm3 (1.8-7.7) 07/02/19 06:36 Sodium 139 mmol/L (137-145) 07/04/19 03:34 Potassium 3.5 mmol/L (3.6-5.0) L 07/04/19 03:34 Chloride 100.1 mmol/L (98-107) 07/04/19 03:34 Carbon Dioxide 27 mmol/L (22-30) 07/04/19 03:34 15 mmol/L 07/04/19 03:34 BUN 10 mg/dL (9-20) 07/04/19 03:34 0.5 mg/dL (0.8-1.5) L 07/04/19 03:34 Estimated GFR > 60 ml/min 07/04/19 03:34 20 % 07/04/19 03:34 Glucose 116 mg/dL (75-100) H 07/04/19 03:34 POC Glucose 116 (70-105) H 07/05/19 08:19 Calcium 9.0 mg/dL (8.4-10.2) 07/04/19 03:34 Magnesium 1.90 mg/dL (1.7-2.3) 07/01/19 19:56 0.70 mg/dL (0.1-1.2) 07/01/19 19:56 AST 54 units/L (5-40) H 07/01/19 19:56 ALT 26 units/L (7-56) 07/01/19 19:56 117 units/L (35-129) 07/01/19 19:56 64.0 umol/L (25-60) H 07/04/19 03:34 536 units/L (55-170) H 07/01/19 19:56 8.7 g/dL (6.3-8.2) H 07/01/19 19:56 4.4 g/dL (3.9-5) 07/01/19 19:56 1.0 % 07/01/19 19:56 Yellow (Yellow) 07/01/19 21:40 Cloudy (Clear) 07/01/19 21:40 5.0 (5.0-7.0) 07/01/19 21:40 Ur Specific [place] 1.023 (1.003-1.030) 07/01/19 21:40 100 mg/dl mg/dL (Negative) 07/01/19 21:40 Neg mg/dL (Negative) 07/01/19 21:40 20 mg/dL (Negative) 07/01/19 21:40 Mod (Negative) 07/01/19 21:40 Neg (Negative) 07/01/19 21:40 Neg (Negative) 07/01/19 21:40 < 2.0 mg/dL (<2.0) 07/01/19 21:40 Ur Leukocyte Esterase Neg (Negative) 07/01/19 21:40 15.0 /HPF (0.0-6.0) H 07/01/19 21:40 14.0 /HPF (0.0-6.0) 07/01/19 21:40 Few /HPF 07/01/19 21:40 2+ /HPF 07/01/19 21:40 Salicylates < 0.3 mg/dL (2.8-20.0) L 07/01/19 19:56 Presumptive negative 07/01/19 21:40 Presumptive negative 07/01/19 21:40 Acetaminophen < 5.0 ug/mL (10.0-30.0) L 07/01/19 19:56 Ur Barbiturates Screen Presumptive negative 07/01/19 21:40 Ur Phencyclidine Scrn Presumptive negative 07/01/19 21:40 Ur Amphetamines Screen Presumptive negative 07/01/19 21:40 U Benzodiazepines Scrn Presumptive negative 07/01/19 21:40 Presumptive negative 07/01/19 21:40 U Marijuana (THC) Screen Presumptive positive 07/01/19 21:40 Disclamer 07/01/19 21:40 Plasma/Serum Alcohol < 0.01 % (0-0.07) 07/01/19 19:56 Active Medications - Current Medications Current Medications: Generic Name Dose Route Start Last Admin Trade Name Freq PRN Reason Stop Dose Admin Acetaminophen 650 mg 07/02/19 00:47 Tylenol PO Q4H PRN Pain MILD(1-3)/Fever >100.5/LOUISE Acetaminophen 650 mg 07/02/19 00:47 Tylenol [place] Q4H PRN Pain MILD(1-3)/Fever >100.5/LOUISE Folic Acid 1 mg 07/04/19 10:00 07/05/19 10:37 Folvite PO 1 mg QDAY BEE Administration Dextrose/Sodium Chloride 1,000 mls @ 100 mls/hr 07/03/19 17:00 07/04/19 21:56 D5ns 0.2% IV 100 mls/hr DIRECT BEE Administration Lactulose 10 gm 07/04/19 13:00 07/05/19 10:37 Cephulac PO 10 gm QDAY BEE Administration Lorazepam 2 mg 07/01/19 19:35 07/04/19 01:33 Ativan IV 2 mg Q1HR PRN Administration CIWA-Ar 8-15 Lorazepam 4 mg 07/01/19 19:35 07/04/19 20:06 Ativan IV 4 mg Q1HR PRN Administration CIWA-Ar 16-25 Lorazepam 4 mg 07/01/19 19:35 Ativan IV Q15MIN PRN CIWA-Ar >25 Ondansetron HCl 4 mg 07/02/19 00:47 Zofran IV Q4H PRN Nausea And Vomiting Sodium Chloride 10 ml 07/02/19 10:00 07/05/19 10:37 Sodium Chloride Flush Syringe 10 Ml IV Not Given BID BEE Sodium Chloride 10 ml 07/02/19 00:47 Sodium Chloride Flush Syringe 10 Ml IV PRN PRN LINE FLUSH Thiamine HCl 100 mg 07/04/19 10:00 07/05/19 10:37 Vitamin B-1 PO 100 mg QDAY BEE Administration Nutrition/Malnutrition Assess - Dietary Evaluation Nutrition/Malnutrition Findings: Nutrition Notes Start: 07/03/19 17:17 Freq: Status: Active Protocol: Document 07/03/19 17:17 RM (Rec: 07/03/19 17:20 RM [id number]) Nutrition Notes Need for Assessment generated from: MD Order Initial or Follow up Brief Note Other Pertinent Diagnosis Hx alcohol abuse, Alcohol withdrawal, Elevated ammonia Current Diet Pureed Labs/Tests Reviewed Pertinent Medications Lactulose Height 5 ft 11 in Weight 67.7 kg [place] Body Weight (kg) 78.18 BMI 20.8 Subjective/Other Information Consulted for ONS diet. Pt confused at time of visit. Per nurse pt ate all of his meals today. Noted temporal wasting. Burn Absent Trauma Absent Nutrition Intervention Follow-Up By: 07/05/19 Additional Comments Follow for PO intakes, malnurition assessment
[2019-07-05] MEDS: D5NS 0.2% 1,000 ML IV SCH (21:59)
[2019-07-06 08:20] VITALS: BP 139/92
[2019-07-06] MEDS: SODIUM CHLORIDE FLUSH SYRINGE 10 ML IV SCH (10:14)
[2019-07-06] MEDS: FOLVITE PO SCH (10:14)
[2019-07-06] MEDS: CEPHULAC PO SCH (10:14)
[2019-07-06] MEDS: VITAMIN B-1 PO SCH (10:14)
[2019-07-06] MEDS: D5NS 0.2% 1,000 ML IV SCH (10:15)
--- NOTE | 2019-07-06 11:53 | Discharge Summary ---
Providers - Providers Date of Admission: 07/02/19 00:47 Attending physician: DANISH DILLON MD 07/03/19 10:15 Speech Therapy Evaluation and Treat [CONS] Stat Reason For Exam: for swallow evaluation,as patient is NPO since yes 07/03/19 10:21 Speech Therapy Evaluation and Treat [CONS] Routine Reason For Exam: dysphagia 07/04/19 14:17 Physical Therapy Evaluation and Treat [CONS] Routine Comment: Reason For Exam: ataxia [facility] Condition: Fair Disposition: DC-30 STILL A PATIENT Exam - Constitutional Vitals: Temp Pulse Resp BP Pulse Ox 98.8 F 79 18 139/92 100 07/06/19 08:06 07/06/19 08:06 07/06/19 08:06 07/06/19 08:06 07/06/19 08:06 Plan Follow up with: STACEY PÉREZWALCOTT MD CRISTIAN [Primary Care Provider] - 3-5 Days Prescriptions: Lactulose [Cephulac] 10 gm PO QDAY #30 oral.liqd Folic Acid [Folvite] 1 mg PO QDAY #30 tablet Thiamine [Vitamin B-1] 100 mg PO QDAY #30 tablet
== END 2019-07-06 15:33 | disposition home or self-care (01) | DRG 101 ==
LOC: ED 18:45 → 4A 07-02 00:47
PROVIDERS: ADMIT Internal Medicine; ATTEND Internal Medicine
DX: G40.901 Epilepsy, unspecified, not intractable, with status epilepticus (principal); K72.90 Hepatic failure, unspecified without coma; F10.10 Alcohol abuse, uncomplicated; D69.6 Thrombocytopenia, unspecified; R13.10 Dysphagia, unspecified; Y90.9 Presence of alcohol in blood, level not specified
CPT/HCPCS: 36415; 70450; 71045; 72125; 80048; 80053; 80307; 80320; 81001; 82140; 82550; 82962; 83735; 85025; 87086; 93005; 93010; 96365; 96375; G0378; G0480; J1953; J2060; J3480; J7040

== ENCOUNTER 2019-07-07 16:13 | Emergency (ER) | payer MEDICAID ==
[2019-07-07] MEDS: ATIVAN IV NR ×2 (16:15→17:32)
[2019-07-07] MEDS ORDERED: KEPPRA 1,000 MG/NS 0.75% 100ML 1,000 MG/100 ML BAG IV ONE ×2 (16:19→16:21)
[2019-07-07] MEDS ORDERED: MAGNESIUM SULFATE 2GM/50ML 2 GM/50 ML BAG IV ONE ×2 (16:20→17:29)
[2019-07-07] MEDS ORDERED: NACL 0.9% 1000 ML 1,000 ML IV ONE ×2 (16:20→17:26)
[2019-07-07] MEDS ORDERED: ATIVAN ONE (16:21)
--- NOTE | 2019-07-07 16:24 | Emergency Department Report ---
HPI - General Time Seen by Provider: 07/07/19 16:18 - HPI HPI: Room 1 The patient is a 54-year-old male presenting with chief complaint of seizure. Per EMS the patient has no past medical history except for alcoholism. Patient reportedly stopped drinking alcohol suddenly a few days ago. EMS states 3 days ago the patient came to the ED after having his first 2 seizures in life. Today the patient was in his bed with family witnessed the patient having a generalized tonic-clonic seizure. EMS states when they arrived the patient was supine on the bed "foaming at the mouth." The patient has remained postictal with EMS. No medications were administered per EMS Location: [See above] Duration: [See above] Quality: [See above] Severity: [See above] Modifying factors: [see above] Context: [see above] Mode of transportation: [not driving] ED Past Medical Hx - Past Medical History Hx Arthritis: Yes Additional medical history: etoh abuse - Surgical History Additional Surgical History: left hip dislocation - Family History Family history: no significant - Social History Smoking Status: Unknown if ever smoked Substance Use Type: Alcohol (history of alcoholism) - Medications Home Medications: Home Medications Medication Instructions Recorded Confirmed Last Taken Type Folic Acid [Folvite] 1 mg PO QDAY #30 tablet 07/06/19 Unknown Rx Lactulose [Cephulac] 10 gm PO QDAY #30 oral.liqd 07/06/19 Unknown Rx Thiamine [Vitamin B-1] 100 mg PO QDAY #30 tablet 07/06/19 Unknown Rx ED Review of Systems ROS: Stated complaint: SEIZURES Other details as noted in HPI Comment: Unobtainable due to pts medical conditions (patient postictal) Physical Exam - Physical Exam Physical Exam: GENERAL: The patient is well-developed well-nourished male lying on stretcher postictal in appearance. Saliva present to the left side of the face HEENT: Normocephalic. Atraumatic. Extraocular motions are intact. Patient has moist mucous membranes. Pupils 3-2 mm bilaterally NECK: Supple. Trachea midline CHEST/LUNGS: Diffuse rhonchi. There is no respiratory distress noted. HEART/CARDIOVASCULAR: Regular. There is tachycardia. There is no gallop rub or murmur. ABDOMEN: Abdomen is soft, nontender. Patient has normal bowel sounds. There is no abdominal distention. SKIN: There is no rash. There is no edema. There is no diaphoresis. NEURO: The patient is postictal. Opens eyes and attempts to localize with sternal rub. Patient does not speak. MUSCULOSKELETAL: There is no evidence of acute injury. ED Course - Reevaluation(s) Reevaluation #1: 07/07/19 18:38 Patient remains unresponsive. Absent gag reflex. Patient intubated using RSI including lidocaine - Consultations Consultation #1: 07/07/19 18:42 [facility] transfer line called 07/07/19 18:52 Case discussed with trauma attending Dr. Johnson- will accept patient in transfer - Intubation Time Out Performed: Yes Sedative: Etomidate Mg Given: 20 Paralytic: Succinylcholine Mg Given: 100 Laryngoscope: Osmel Size: 3 ET Tube Size: 8 Tube Secured Depth (cm): 24 Tube Secured Location: lips Tube Placement Confirmation: equal breath sounds bilat, no breath sounds over epi, confirmation by capnometr Patient Tolerated Procedure: well, no complications Intubation Complications: none ED Medical Decision Making - Lab Data Result diagrams: 07/07/19 16:22 07/07/19 16:22 Laboratory Tests 07/07/19 07/07/19 07/07/19 16:22 16:22 16:22 WBC 7.2 RBC 4.36 Hgb 13.8 Hct 41.2 MCV 95 H MCH 32 MCHC 34 RDW 13.0 L Plt Count 187 [place] % (Auto) Insurance Law Specialist Add Manual Diff Complete Total Counted 100 Seg Neuts % (Manual) 72.0 H Band Neutrophils % 0 Lymphocytes % (Manual) 15.0 Reactive Lymphs % (Man) 0 Monocytes % (Manual) 13.0 H Eosinophils % (Manual) 0 Basophils % (Manual) 0 Metamyelocytes % 0 Myelocytes % 0 Promyelocytes % 0 Blast Cells % 0 Nucleated RBC % Not Reportable Seg Neutrophils # Man 5.2 Band Neutrophils # 0.0 Lymphocytes # (Manual) 1.1 L Abs React Lymphs (Man) 0.0 Monocytes # (Manual) 0.9 H Eosinophils # (Manual) 0.0 Basophils # (Manual) 0.0 Metamyelocytes # 0.0 Myelocytes # 0.0 Promyelocytes # 0.0 Blast Cells # 0.0 WBC Morphology Not Reportable Hypersegmented Neuts Not Reportable Hyposegmented Neuts Not Reportable Hypogranular Neuts Not Reportable Smudge Cells Not Reportable Toxic Granulation Not Reportable Toxic Vacuolation Not Reportable Dohle Bodies Not Reportable Pelger-Huet Anomaly Not Reportable Jesus Rods Not Reportable Platelet Estimate Consistent w auto Clumped Platelets Not Reportable Plt Clumps, EDTA Not Reportable Large Platelets Not Reportable Giant Platelets Not Reportable Platelet Satelliting Not Reportable Plt Morphology Comment Not Reportable RBC Morphology Not Reportable Dimorphic RBCs Not Reportable Polychromasia Not Reportable Hypochromasia Not Reportable Poikilocytosis Not Reportable Anisocytosis 1+ Microcytosis Not Reportable Macrocytosis Not Reportable Spherocytes Not Reportable Pappenheimer Bodies Not Reportable Sickle Cells Not Reportable Target Cells Few Tear Drop Cells Not Reportable Ovalocytes Few Helmet Cells Not Reportable [place] Bodies Not Reportable [place] Rings Not Reportable [place] Cells Not Reportable Bite Cells Not Reportable Crenated Cell Not Reportable Elliptocytes Not Reportable Acanthocytes (Spur) Not Reportable Rouleaux Not Reportable Hemoglobin C Crystals Not Reportable Schistocytes Not Reportable Malaria parasites Not Reportable Guy Bodies Not Reportable Hem Pathologist Commnt No PT 13.8 INR 1.09 APTT 21.2 L Sodium 141 Potassium 2.2 L* D Chloride 105.0 Carbon Dioxide 21 L Anion Gap 17 BUN 7 L Creatinine 0.4 L Estimated GFR > 60 BUN/Creatinine Ratio 18 Glucose 95 Calcium 6.5 L D Magnesium Total Bilirubin 0.50 AST 51 H ALT 27 Alkaline Phosphatase 51 Total Creatine Kinase 1407 H CK-MB (CK-2) 1.6 CK-MB (CK-2) Rel Index 0.1 Troponin T < 0.010 Total Protein 5.5 L Albumin 2.8 L Albumin/Globulin Ratio 1.0 TSH Free T4 Urine Opiates Screen Urine Methadone Screen Ur Barbiturates Screen Ur Phencyclidine Scrn Ur Amphetamines Screen U Benzodiazepines Scrn Urine Cocaine Screen U Marijuana (THC) Screen Drugs of Abuse Note Plasma/Serum Alcohol 07/07/19 07/07/19 07/07/19 16:22 16:22 16:22 WBC RBC Hgb Hct MCV MCH MCHC RDW Plt Count [place] % (Auto) Add Manual Diff Total Counted Seg Neuts % (Manual) Band Neutrophils % Lymphocytes % (Manual) Reactive Lymphs % (Man) Monocytes % (Manual) Eosinophils % (Manual) Basophils % (Manual) Metamyelocytes % Myelocytes % Promyelocytes % Blast Cells % Nucleated RBC % Seg Neutrophils # Man Band Neutrophils # Lymphocytes # (Manual) Abs React Lymphs (Man) Monocytes # (Manual) Eosinophils # (Manual) Basophils # (Manual) Metamyelocytes # Myelocytes # Promyelocytes # Blast Cells # WBC Morphology Hypersegmented Neuts Hyposegmented Neuts Hypogranular Neuts Smudge Cells Toxic Granulation Toxic Vacuolation Dohle Bodies Pelger-Huet Anomaly Jesus Rods Platelet Estimate Clumped Platelets Plt Clumps, EDTA Large Platelets Giant Platelets Platelet Satelliting Plt Morphology Comment RBC Morphology Dimorphic RBCs Polychromasia Hypochromasia Poikilocytosis Anisocytosis Microcytosis Macrocytosis Spherocytes Pappenheimer Bodies Sickle Cells Target Cells Tear Drop Cells Ovalocytes Helmet Cells [place] Bodies [place] Rings [place] Cells Bite Cells Crenated Cell Elliptocytes Acanthocytes (Spur) Rouleaux Hemoglobin C Crystals Schistocytes Malaria parasites Guy Bodies Hem Pathologist Commnt PT INR APTT Sodium Potassium Chloride Carbon Dioxide Anion Gap BUN Creatinine Estimated GFR BUN/Creatinine Ratio Glucose Calcium Magnesium 1.00 L Total Bilirubin AST ALT Alkaline Phosphatase Total Creatine Kinase CK-MB (CK-2) CK-MB (CK-2) Rel Index Troponin T Total Protein Albumin Albumin/Globulin Ratio TSH 0.285 Free T4 0.84 Urine Opiates Screen Urine Methadone Screen Ur Barbiturates Screen Ur Phencyclidine Scrn Ur Amphetamines Screen U Benzodiazepines Scrn Urine Cocaine Screen U Marijuana (THC) Screen Drugs of Abuse Note Plasma/Serum Alcohol < 0.01 07/07/19 17:13 WBC RBC Hgb Hct MCV MCH MCHC RDW Plt Count [place] % (Auto) Add Manual Diff Total Counted Seg Neuts % (Manual) Band Neutrophils % Lymphocytes % (Manual) Reactive Lymphs % (Man) Monocytes % (Manual) Eosinophils % (Manual) Basophils % (Manual) Metamyelocytes % Myelocytes % Promyelocytes % Blast Cells % Nucleated RBC % Seg Neutrophils # Man Band Neutrophils # Lymphocytes # (Manual) Abs React Lymphs (Man) Monocytes # (Manual) Eosinophils # (Manual) Basophils # (Manual) Metamyelocytes # Myelocytes # Promyelocytes # Blast Cells # WBC Morphology Hypersegmented Neuts Hyposegmented Neuts Hypogranular Neuts Smudge Cells Toxic Granulation Toxic Vacuolation Dohle Bodies Pelger-Huet Anomaly Jesus Rods Platelet Estimate Clumped Platelets Plt Clumps, EDTA Large Platelets Giant Platelets Platelet Satelliting Plt Morphology Comment RBC Morphology Dimorphic RBCs Polychromasia Hypochromasia Poikilocytosis Anisocytosis Microcytosis Macrocytosis Spherocytes Pappenheimer Bodies Sickle Cells Target Cells Tear Drop Cells Ovalocytes Helmet Cells [place] Bodies [place] Rings [place] Cells Bite Cells Crenated Cell Elliptocytes Acanthocytes (Spur) Rouleaux Hemoglobin C Crystals Schistocytes Malaria parasites Guy Bodies Hem Pathologist Commnt PT INR APTT Sodium Potassium Chloride Carbon Dioxide Anion Gap BUN Creatinine Estimated GFR BUN/Creatinine Ratio Glucose Calcium Magnesium Total Bilirubin AST ALT Alkaline Phosphatase Total Creatine Kinase CK-MB (CK-2) CK-MB (CK-2) Rel Index Troponin T Total Protein Albumin Albumin/Globulin Ratio TSH Free T4 Urine Opiates Screen Presumptive negative Urine Methadone Screen Presumptive negative Ur Barbiturates Screen Presumptive negative Ur Phencyclidine Scrn Presumptive negative Ur Amphetamines Screen Presumptive negative U Benzodiazepines Scrn Presumptive negative Urine Cocaine Screen Presumptive negative U Marijuana (THC) Screen Presumptive negative Drugs of Abuse Note Disclamer Plasma/Serum Alcohol - EKG Data -: EKG Interpreted by [place] EKG shows normal: sinus rhythm Rate: tachycardia (116 bpm) - EKG Data When compared to previous EKG there are: previous EKG unavailable Interpretation: other (no ischemic changes seen) - Differential Diagnosis alcohol withdrawal seizure, intracranial mass, ICH, electrolyte Imbalance Critical Care Time: Yes Critical care time in (mins) excluding proc time.: 30 Critical care attestation.: If time is entered above; I have spent that time in minutes in the direct care of this critically ill patient, excluding procedure time. ED Disposition Clinical Impression: Alcohol withdrawal seizure, Hypokalemia, Hypomagnesemia, Hypocalcemia, Rhabdomyolysis, Focal hemorrhagic contusion of cerebrum, Subarachnoid hemorrhage, Subdural hematoma, Altered mental status Disposition: [id number] OP ADMIT IP TO THIS HOSP Is pt being admited?: Yes Does the pt Need Aspirin: No Condition: Serious Referrals: LESLY ASIF MD [Primary Care Provider] - 3-5 Days Time of Disposition: 18:53 (awaiting transport)
[2019-07-07 16:34] LABS: Hematocrit 41.2 % (35.5-45.6); Hemoglobin 13.8 gm/dl (11.8-15.2); Mean Corpuscular HGB Conc 34 % (32-34); Mean Corpuscular Volume 95 fl (84-94); Platelet Count 187 K/mm3 (140-440); Red Blood Count 4.36 M/mm3 (3.65-5.03)
[2019-07-07 17:04] LABS: Creatine Kinase MB 1.6 ng/mL (0.0-4.0)
[2019-07-07 17:05] LABS: Alanine Aminotransferase 27 units/L (7-56); Albumin 2.8 g/dL (3.9-5); BUN/Creatinine Ratio 18; Blood Urea Nitrogen 7 mg/dL (9-20); Calcium 6.5 mg/dL (8.4-10.2); Hemolysis Index 12
[2019-07-07 17:09] LABS: Free T4 (Free Thyroxine) 0.84 ng/dL (0.76-1.46)
[2019-07-07] MEDS ORDERED: ATIVAN IM ONE (17:22)
[2019-07-07] MEDS ORDERED: VITAMIN B-1 100 MG, FOLVITE 1 MG, INFUVITE 10 ML in NACL 0.9% 1000 ML 1,000 ML IV ONE (17:30)
--- NOTE | 2019-07-07 17:31 | XRay Report ---
CHEST 1 VIEW INDICATION: postictal, noisy respirations. COMPARISON: 07/01/2019 FINDINGS: Support devices: None. Heart: Normal. Lungs/Pleura: No acute pulmonary or pleural findings. Lungs remain hyperexpanded. IMPRESSION: 1. No acute findings. Signer Name: Mario Alberto Shearer MD Signed: 07/07/2019 5:27 PM Workstation Name: [id number]
[2019-07-07 17:37] LABS: Amphetamine Screen,Urine PRESUMPTIVE NEGATIVE; Benzodiazepines Screen,Urine PRESUMPTIVE NEGATIVE; Cannabinoid Screen,Urine PRESUMPTIVE NEGATIVE; Cocaine Screen,Urine PRESUMPTIVE NEGATIVE; Methadone Screen,Urine PRESUMPTIVE NEGATIVE; Opiate Screen,Urine PRESUMPTIVE NEGATIVE
[2019-07-07] MEDS: KCL 10MEQ/100ML 10 MEQ/100 ML BAG IV SCH ×2 (17:58→19:04)
[2019-07-07 17:59] LABS: Total Cells Counted 100
[2019-07-07 18:00] LABS: Basophils % (Manual) 0 % (0.0-1.8); Eosinophils % (Manual) 0 % (0.0-4.3)
[2019-07-07] MEDS ORDERED: CALCIUM GLUCONATE 1,000 MG in NACL 0.9% 100 ML IV ONE (18:00)
[2019-07-07 18:01] LABS: Anisocytosis 1+; INR 1.09 (0.87-1.13); Ovalocytes Few; Platelet Estimate Consistent w Auto; Target Cells Few
[2019-07-07 18:02] LABS: Partial Thromboplastin Time 21.2 Sec. (24.2-36.6)
[2019-07-07] MEDS ORDERED: XYLOCAINE CARDIAC IV ONE (18:30)
[2019-07-07] MEDS ORDERED: NORMODYNE IV ONE (18:34)
--- NOTE | 2019-07-07 18:46 | Cat Scan Report ---
CT BRAIN: 07/07/2019 INDICATION / CLINICAL INFORMATION: Seizure. COMPARISON: 07/01/2019 FINDINGS: BRAIN/INTRACRANIAL STRUCTURES: Unenhanced CT images of the brain were obtained. There are prominent bilateral frontal hemorrhagic contusions, with prominent edema and local mass eff ect, slightly more pronounced on the left. There is also a hemorrhagic contusion in the anterior aspects of the temporal lobes bilaterally, more pronounced on the left than on the right. There is evidence of small amount of subdural blood present along the left side of the falx, and exte nding along the left tentorium. Sulcal hyperdensity is present over the high parietal convexities john aterally, more prominently on the left, consistent with subarachnoid hemorrhage. When compared to the prior exam, the extent of bifrontal hemorrhagic contusion in temporal lobe contu franchesca has increased significantly. EXTRACRANIAL STRUCTURES: Unremarkable. IMPRESSION: Extensive bilateral frontal hemorrhagic contusion. Bilateral temporal lobe contusion, left greater t mckenzie right. This pattern is often seen in association with significant head trauma. There is evidence of subdural hemorrhage along the falx and left tentorium. There is also evidence of some subarachnoid hemorrhage over the high cerebral convexities, left great er than right.. Positive critical value: Time of discovery: 1730 CT Notification: [address] Marshall in the emergency department. All CT scans at this location are performed using dose reduction to ALARA by means of automated expos ure control. Signer Name: Shahriar Wilson MD Signed: 07/07/2019 6:42 PM Workstation Name: [id number]
[2019-07-07] MEDS ORDERED: VERSED IV PRN (19:01)
[2019-07-07] MEDS ORDERED: VASELINE LIP THERAPY TP PRN (19:01)
[2019-07-07] MEDS ORDERED: ARTIFICIAL TEARS OPHTH OINT OU PRN (19:01)
--- NOTE | 2019-07-07 19:06 | XRay Report ---
CHEST 1 VIEW 07/07/2019 6:47 PM INDICATION / CLINICAL INFORMATION: status post intubation. COMPARISON: 07/07/19 FINDINGS: SUPPORT DEVICES: Endotracheal tube has been placed with the tip at the level of the clavicles 8.5 cm above the fuad. Esophagogastric tube has been placed into the stomach in expected position. HEART / MEDIASTINUM: No significant abnormality. LUNGS / PLEURA: No significant pulmonary or pleural abnormality. No pneumothorax. ADDITIONAL FINDINGS: No significant additional findings. IMPRESSION: 1. Tip of endotracheal tube at the level of the clavicles. Tube could be advanced 4-5 cm for optimal positioning. Signer Name: Ruth Polanco MD Signed: 07/07/2019 7:01 PM Workstation Name: [id number]
[2019-07-07] MEDS ORDERED: VERSED IV ONE (19:19)
[2019-07-07 19:32] VITALS: BP 134/98
[2019-07-07] MEDS ORDERED: AMIDATE IV ONE (19:39)
[2019-07-07] MEDS ORDERED: QUELICIN IV ONE (19:39)
[2019-07-07] MEDS ORDERED: MIDAZOLAM 100 MG in NACL 0.9% 80 ML IV SCH (20:00)
[2019-07-08] MEDS ORDERED: AMIDATE IV ONE (10:48)
[2019-07-08] MEDS ORDERED: XYLOCAINE CARDIAC IV ONE (10:48)
[2019-07-08] MEDS ORDERED: QUELICIN ONE (10:48)
== END 2019-07-07 19:45 | disposition admitted as inpatient to this hospital (09) ==
LOC: ED 16:13
DX: S06.6X0A Traumatic subarachnoid hemorrhage without loss of consciousness, initial encounter (principal); S06.5X0A Traumatic subdural hemorrhage without loss of consciousness, initial encounter; F10.239 Alcohol dependence with withdrawal, unspecified; E87.6 Hypokalemia; E83.42 Hypomagnesemia; E83.51 Hypocalcemia; M62.82 Rhabdomyolysis; M19.90 Unspecified osteoarthritis, unspecified site; Z79.899 Other long term (current) drug therapy; X58.XXXA Exposure to other specified factors, initial encounter; Y93.89 Activity, other specified; Y92.89 Other specified places as the place of occurrence of the external cause; Y99.8 Other external cause status
CPT/HCPCS: 31500; 36415; 70450; 71045; 80053; 80307; 82550; 82553; 83735; 84439; 84443; 84484; 85007; 85025; 85610; 85730; 93005; 93010; 96365; 96366; 96367; 96368; 96375; 96376; 99291; J0610; J1953; J2060; J2250; J3411; J3475; J3480; J7030; 80320; 94002; G0480; J0330; J2001